=== PATIENT | male | born 1990 | race Caucasian/White ===

== ENCOUNTER 2024-07-07 21:21 | Emergency (ER) | payer MEDICAID ==
[~2024-07-07] VITALS: Ht 167.6 cm; Wt 79.0 kg
[2024-07-07] MEDS: FENTANYL CITRATE/PF 50MCG/ML 2ML VIAL IV ONE (22:34)
[2024-07-07] MEDS ORDERED: HYDR-4001 MT ×2 (22:39→23:48)
[2024-07-07] MEDS ORDERED: NAPR-1074 MT (22:39)
[2024-07-07] MEDS: ACETAMINOPHEN 1000MG/100ML 100 ML IV ONE (22:56)
[2024-07-07] MEDS: SODIUM CHLORIDE 0.9% 1,000 ML IV ONE (23:00)
[2024-07-07 23:16] VITALS: O2SAT 98
[2024-07-07] MEDS: PROPOFOL 200MG/20ML VIAL IV ONE (23:16)
[2024-07-08 02:15] VITALS: BP 134/80; PULSE 63; RESP 15; TEMP 37; O2SAT 95
== END 2024-07-08 02:30 | disposition home or self-care (01) ==
LOC: ER 21:21
DX: S52.592A Other fractures of lower end of left radius, initial encounter for closed fracture (principal); V00.141A Fall from scooter (nonmotorized), initial encounter; Y93.89 Activity, other specified; Y92.89 Other specified places as the place of occurrence of the external cause; Y99.8 Other external cause status
CPT/HCPCS: 25605; 73080; 73090; 73110; 73130; 96361; 96365; 96375; 99152; 99285; J3010; J2704; J7030; J0131